=== PATIENT | female | born 1955 | race African-American/Black ===

== ENCOUNTER 2020-09-11 12:57 | Observation (INO) ==
[2020-09-11 13:58] LABS: Basophils % 0.2 % (0.0-0.8); Eosinophils % 0.8 % (0.00-10.9); Hematocrit 36.8 VOL% (35.7-47.0); Hemoglobin 11.3 GM/DL (12.0-16.0); Immature Granulocytes % 0.6 %; Immature Granulocytes Absolute 0.03 #; Lymphocytes # 0.6 10*3/uL (1.4-4.0); Lymphocytes % 12.7 % (21.3-54.2); Mean Corpuscular HGB Conc 30.7 GM/DL (32-36); Mean Corpuscular Volume 80.7 FL (87-102); Mean Platelet Volume 9.7 FL (9.6-12.0); Monocytes % 6.3 % (1.7-12.7); Neutrophils % 79.4 % (38.7-73.9); Platelet Count 228 T/CUMM (130-400); Red Blood Count 4.56 MC/CUMM (3.8-5.5); Red Cell Distribution Width 16.8 % (9.3-17.3); White Blood Count 4.7 T/CUMM (4-12)
[2020-09-11] MEDS ORDERED: ASPIRIN 325 MG TABLET PO STA (14:05)
[2020-09-11 14:15] LABS: Alanine Aminotransferase 22 U/L (13-56); Albumin 3.6 G/DL (3.4-5.0); Alkaline Phosphatase 134 U/L (45-117); Aspartate Amino Transferase 17 U/L (0-37); Bilirubin,Total < 0.39 MG/DL (0.2-1.0); Blood Urea Nitrogen 16 MG/DL (7-18); Carbon Dioxide 24 MMOL/L (21-32); Estimated Glom Filtration Rate 93 ML/MIN; Glucose 94 MG/DL (74-106); Osmolality,Calculated 281.3 MOS/KG (273-304); Potassium 3.7 MMOL/L (3.5-5.1); Sodium 141 MMOL/L (136-145); Total Protein 6.7 G/DL (6.4-8.2)
[2020-09-11] MEDS ORDERED: BISACODYL 5 MG TABLET PO PRN (15:45)
[2020-09-11] MEDS ORDERED: ONDANSETRON 4 MG/2 ML VIAL IV PRN (15:45)
[2020-09-11] MEDS ORDERED: ACETAMINOPHEN 325 MG TABLET PO PRN (15:45)
[2020-09-11] MEDS ORDERED: DEXTROSE 50% 25 GM/50 ML VIAL IV PRN (15:45)
[2020-09-11] MEDS ORDERED: GLUCAGON 1 MG VIAL IM PRN (15:45)
[2020-09-11] MEDS ORDERED: LORATADINE 10 MG TABLET PO PRN (15:48)
[2020-09-11] MEDS ORDERED: ENOXAPARIN 40 MG/0.4 ML SYRINGE SUBCUT SCH (21:00)
[2020-09-11] MEDS: LOTEPREDNOL ETABONATE BOTH EYES SCH (21:12)
[2020-09-11] MEDS: FLUTICASONE 50 MCG NASAL SPRAY 16 GM BOTTLE BOTH NARES SCH (21:12)
[2020-09-12] MEDS ORDERED: ALUMINUM/MAGNES/SIMETH MAX STR 30 ML UDCUP PO PRN (00:16)
[2020-09-12 03:05] LABS: Basophils % 0.5 % (0.0-0.8); Eosinophils # 0.1 10*3/uL (0.0-0.87); Eosinophils % 1.2 % (0.00-10.9); Hematocrit 33.5 VOL% (35.7-47.0); Hemoglobin 10.7 GM/DL (12.0-16.0); Immature Granulocytes % 0.5 %; Immature Granulocytes Absolute 0.02 #; Lymphocytes # 0.7 10*3/uL (1.4-4.0); Lymphocytes % 16.8 % (21.3-54.2); Mean Corpuscular HGB Conc 31.9 GM/DL (32-36); Mean Corpuscular Volume 79.4 FL (87-102); Mean Platelet Volume 9.2 FL (9.6-12.0); Monocytes % 11.1 % (1.7-12.7); Neutrophils % 69.9 % (38.7-73.9); Platelet Count 200 T/CUMM (130-400); Red Blood Count 4.22 MC/CUMM (3.8-5.5); Red Cell Distribution Width 16.6 % (9.3-17.3)
[2020-09-12 03:26] LABS: Elliptocytes 1+; Hypochromasia 2+; Platelet Estimate Normal; Tear Drop Cells Few
[2020-09-12 03:27] LABS: Target Cells Few
[2020-09-12 03:34] LABS: Calcium 8.6 MG/DL (8.5-10.1); Osmolality,Calculated 279.4 MOS/KG (273-304); Potassium 3.4 MMOL/L (3.5-5.1)
[2020-09-12 03:37] LABS: % Iron Saturation 11.8 % (18-50); Ferritin 95.3 ng/ml (8-252); Risk Ratio 2.75; VLDL CHOLESTEROL 29.2 MG/DL
[2020-09-12] MEDS ORDERED: DIPHENOXYLATE/ATROPINE 2.5-0.025 MG TABLET PO SCH (04:30)
[2020-09-12] MEDS ORDERED: MAGNESIUM SULF RIDER 4 GM in PREMIX 1 EACH IV PRN (07:20)
[2020-09-12] MEDS ORDERED: MAGNESIUM SULF RIDER 2 GM in PREMIX 1 EACH IV PRN (07:20)
[2020-09-12] MEDS ORDERED: MAGNESIUM SULF RIDER 4 GM in PREMIX 1 EACH IV ONE (08:16)
[2020-09-12] MEDS ORDERED: ASPIRIN EC 81 MG TABLET PO SCH (09:00)
[2020-09-12] MEDS ORDERED: NON-FORMULARY MEDICATION (Olopatadine [Pataday Once Daily Relief] 0.2 % Drops) BOTH EYES SCH (09:00)
[2020-09-12] MEDS ORDERED: MONTELUKAST 10 MG TABLET PO SCH (09:00)
[2020-09-12] MEDS ORDERED: MAGNESIUM CHLORIDE 64 MG TABLET PO SCH (09:00)
[2020-09-12] MEDS ORDERED: INFLUENZA VIRUS VACCINE 0.5 ML SYRINGE IM ONE (10:00)
[2020-09-12] MEDS: FLUTICASONE 50 MCG NASAL SPRAY 16 GM BOTTLE BOTH NARES SCH (10:01)
[2020-09-12] MEDS: POTASSIUM CHLORIDE 20 MEQ TABLET PO PRN ×3 (10:01→14:08)
[2020-09-12] MEDS: LOTEPREDNOL ETABONATE BOTH EYES SCH (10:01)
[2020-09-12 14:32] VITALS: BP 110/68
== END 2020-09-12 14:38 | disposition home or self-care (01) ==
LOC: N.ED 12:57 → N.EDINP 12:57 → N.TELEN 17:49
PROVIDERS: ADMIT Internal Medicine; ATTEND Internal Medicine